=== PATIENT | male | born 1950 | race Caucasian/White ===

== ENCOUNTER 2017-11-14 13:37 | Emergency (ER) | payer OTHER ==
[~2017-11-14] VITALS: Ht 170.2 cm; Wt 67.6 kg
[2017-11-14 14:02] VITALS: BP 112/73
[2017-11-14 15:04] LABS: INR 0.99 (0.9-1.15); Partial Thromboplastin Time 29.7 sec (22.64-33.71); Prothrombin Time 10.8 sec (9.37-12.3)
== END 2017-11-14 18:03 | disposition home or self-care (01) ==
LOC: ER 13:37
DX: E78.00 Pure hypercholesterolemia, unspecified (principal); I10 Essential (primary) hypertension; Z76.0 Encounter for issue of repeat prescription; Z86.73 Personal history of transient ischemic attack (TIA), and cerebral infarction without residual deficits
CPT/HCPCS: 36415; 82962; 85610; 85730